=== PATIENT | female | born 2000 | race Caucasian/White ===

== ENCOUNTER 2021-03-30 17:31 | Emergency (ER) | payer OTHER, SELFPAY ==
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
[2021-03-30 17:40] VITALS: BP 119/74; PULSE 64; RESP 20; TEMP 36.3; O2SAT 100
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
== END 2021-03-30 18:13 | disposition home or self-care (01) ==
PROVIDERS: Emergency Provider Nurse Practitioner
DX: S69.91XA Unspecified injury of right wrist, hand and finger(s), initial encounter (principal); W22.8XXA Striking against or struck by other objects, initial encounter; E28.2 Polycystic ovarian syndrome; Z87.820 Personal history of traumatic brain injury
CPT/HCPCS: 73130; 99213; G0463

== ENCOUNTER 2021-10-01 17:53 | Emergency (ER) | payer OTHER, SELFPAY ==
--- NOTE | 2021-10-01 17:58 | ED.EAR ---
HPI - Ear Problem General Chief complaint: Ear Stated complaint: Lt Ear Pain Time Seen by Provider: 10/01/21 17:58 Source: patient, RN notes reviewed and old records reviewed Mode of arrival: ambulatory Limitations: no limitations History of Present Illness HPI Narrative: 21-year-old female presents to the [facility] with complaints of left ear pain since this morning. No treatment prior to arrival. Denies fevers. No headaches. No sore throat. No chest pain or abdominal pain. No nausea vomiting or diarrhea. MD Complaint: ear pain and ear discharge Location: left ear Related Data Allergies Allergy/AdvReac Type Severity Reaction Status Date / Time No Known Allergies Allergy Verified 10/01/21 17:55 Review of Systems Review of Systems: All systems reviewed & are unremarkable except as noted in HPI and below Constitutional: Constitutional: Reports no additional constitutional complaints, Denies chills and Denies fever(s) Eyes: Eyes: Reports no additional eye complaints, Denies change in vision and Denies photophobia ENT: Reports as per HPI Comments: There is no deformity of the finger. The patient is unable to extend or flex it well because of the pain. The PIP joint is not tender and extension is full and strong there. The DIP joint area is not particularly swollen but is tender. Cardiovascular: Cardiovascular: Reports no additional cardiovascular complaints and Denies chest pain Respiratory: Respiratory: Reports no additional respiratory complaints, Denies cough and Denies dyspnea Gastrointestinal: Gastrointestinal: Reports no additional gastrointestinal complaints, Denies abdominal pain, Denies nausea and Denies vomiting Musculoskeletal: Musculoskeletal: Reports no additional musculoskeletal complaints Integumentary/Breasts: Skin/Breast: Reports system reviewed and no additional complaints, except as docu Neurologic: Reports system reviewed and no additional complaints, except as documented Psychiatric: Psychiatric: Reports no additional psychiatric complaints Allergic/Immunologic: Allergic/Immunologic: Reports no additional allergic/immunologic complaints [facility] Past Medical History Medical History PCOS (polycystic ovarian syndrome) Traumatic brain injury Social History Social History Gender identity (if verbalized by the patient): Female Comments At the time of my signature, I reviewed and agree with the nursing past medical, surgical, social, and family history. There is no relevant family history pertinent to the patient complaint. Exam Const: General: healthy appearing, no acute distress and alert Nutritional Appearance: well nourished Orientation/consciousness: patient oriented x3 Limitations: no limitations HENMT: Head: normal to inspection Ears: external ears normal, EAC's normal and TM abnormal bulging on the left and erythematous on the left General nose exam: Normal external nose present Face and sinus: normal facial exam Mouth: Yes Normal oral and palatal mucosa present and Yes lip normal Throat: posterior oropharynx normal Eyes: Conjunctivae: conjunctivae normal Pupils: Equal, round and reactive pupils present Neck: Neck: normal visual inspection, no lymphadenopathy and no meningeal signs Chest: Chest palpation & inspection: normal inspection of the chest Resp: Effort & Inspection: normal respiratory effort Auscultation: clear to auscultation bilaterally Cardio: Rate: regular rate Rhythm: regular rhythm : General: Yes no CVA tenderness Back/Spine/Pelvis: Back: no CVA tenderness Skin: General skin exam: normal color Rashes: no rashes Neuro: General: patient oriented x3, moves all extremities, no meningeal signs and no focal motor deficits Speech: normal speech Gait exam (Neuro): Normal gait present Extrem: General: normal to inspection and no pedal edema Psych: Appea
[2021-10-01 18:05] VITALS: BP 114/51; PULSE 93; RESP 16; TEMP 37.2; O2SAT 100
== END 2021-10-01 18:15 | disposition home or self-care (01) ==
PROVIDERS: Emergency Provider Nurse Practitioner
DX: H66.002 Acute suppurative otitis media without spontaneous rupture of ear drum, left ear (principal); E28.2 Polycystic ovarian syndrome; Z87.820 Personal history of traumatic brain injury
CPT/HCPCS: 99213; G0463

== ENCOUNTER 2023-05-06 16:50 | Emergency (ER) | payer OTHER, SELFPAY ==
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
[2023-05-06 16:52] VITALS: BP 121/64; PULSE 80; RESP 18; TEMP 36.8; O2SAT 100
[2023-05-06 17:09] VITALS: O2SAT 100
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
[2023-05-06 17:30] VITALS: BP 109/61; PULSE 61; RESP 22
[2023-05-06] MEDS: SODIUM CHLORIDE 0.9% IV 1,000 ML 999 ML IV CONT (18:10)
[2023-05-06] MEDS: ACETAMINOPHEN 500 MG TABLET 1000 MG PO (18:11)
[2023-05-06] MEDS: diphenhydrAMINE HCl INJ 50 MG/ML VIAL 25 MG IV PUSH (18:11)
[2023-05-06] MEDS: METOCLOPRAMIDE HCL INJ 10 MG/2 ML VIAL IV PUSH (18:11)
== END 2023-05-06 19:12 | disposition left against medical advice (07) ==
PROVIDERS: Emergency Provider Physician Assistant
DX: S06.9X9A Unspecified intracranial injury with loss of consciousness of unspecified duration, initial encounter (principal); R93.0 Abnormal findings on diagnostic imaging of skull and head, not elsewhere classified; E28.2 Polycystic ovarian syndrome; Z87.820 Personal history of traumatic brain injury; W22.03XA Walked into furniture, initial encounter
CPT/HCPCS: 70450; 96361; 96374; 96375; 99284; A9270; J1200; J2765; J7030

== ENCOUNTER 2023-05-17 23:53 | Emergency (ER) | payer OTHER, SELFPAY ==
[2023-05-17 23:58] VITALS: PULSE 97; RESP 16; TEMP 36.3; O2SAT 99
[2023-05-18 00:17] VITALS: BP 128/84; PULSE 59; RESP 16; O2SAT 98
[2023-05-18 00:22] VITALS: BP 158/84; PULSE 58; RESP 16; O2SAT 98
--- NOTE | 2023-05-18 00:28 | PC.NURSE ---
pt has a broken tooth between the 1st and 2nd molar. pt sts that she eating popcorn and her tongue ring and tooth got tangled and she heard a crack. pt has an infected tooth and took Vicodin today in the am for pain.
--- NOTE | 2023-05-18 00:29 | ED.DENTAL ---
HPI - Dental/Oral General Chief complaint: Dental/Oral Stated complaint: toothache Time Seen by Provider: 05/18/23 00:15 Source: patient Mode of arrival: ambulatory Limitations: no limitations History of Present Illness HPI Narrative: Patient is a 23-year-old female who presents to the ED with report of dental pain. Patient reports she fractured one of her right lower teeth, tooth #29, in January. She was evaluated by her dentist at that time. She began having pain to this tooth around 2 days ago. Pain has progressively worsened since then. Patient has an appointment with her dentist on Monday, but was unable to find relief of the pain tonight. She did try taking Tylenol and a Vicodin at home. Denies any fevers, difficulty breathing or swallowing, drainage from her gums, sore throat. Related Data Allergies Allergy/AdvReac Type Severity Reaction Status Date / Time No Known Allergies Allergy Verified 05/17/23 23:54 Review of Systems Review of Systems: CONSTITUTIONAL: Denies fever, chills, or sweats. ENT: See HPI. CARDIOVASCULAR: Denies chest pain. RESPIRATORY: Denies dyspnea. GASTROINTESTINAL: Denies abdominal pain, nausea, vomiting. All systems reviewed & are unremarkable except as noted in HPI and below PMFSH Past Medical History Medical History PCOS (polycystic ovarian syndrome) Traumatic brain injury Social History Social History Gender identity (if verbalized by the patient): Female Exam Narrative: GENERAL: Well appearing, well-nourished, non-toxic, in no acute distress. HEAD: Normocephalic, atraumatic. ENT: Small corner avulsion chip to tooth #29 with tenderness along outer gumline. No significant erythema of gumline. No focal abscess or fluctuance. No drainage. No stridor. No trismus. NECK: Supple. No adenopathy, no masses. RESPIRATORY: Airway patent, respirations nonlabored. CARDIOVASCULAR: Regular rate and rhythm without murmurs, rubs, or gallops. Radial pulses 2+ and equal bilaterally. MUSCULOSKELETAL: Moves all extremities. Strength/ROM intact without gross deformities. SKIN: Warm, dry, normal color. No rashes. NEURO: A&O X3. Speech clear. Cranial nerves II-XII grossly intact. Steady gait. No ataxic movements. PSYCHIATRIC: Appropriate mood and affect. Normal interaction. Course Vital Signs Vital signs: Vital Signs Temperature 97.3 F L 05/17/23 23:58 Pulse Rate 97 05/17/23 23:58 Respiratory Rate 16 05/17/23 23:58 Pulse Oximetry 99 05/17/23 23:58 Oxygen Delivery Room Air 05/17/23 23:58 Temperature 97.3 F L 05/17/23 23:58 Pulse Rate 58 L 05/18/23 00:22 Respiratory Rate 16 05/18/23 00:22 Blood Pressure 158/84 H 05/18/23 00:22 Pulse Oximetry 98 05/18/23 00:22 Oxygen Delivery Room Air 05/17/23 23:58 MDM - Dental/Oral MDM Narrative Medical decision making narrative: Patient's pain is consistent with dental fracture/infection. There are no focal signs of space-occupying abscess. The patient is controlling secretions well without signs of airway compromise. Patient is felt reasonable for outpatient follow-up with dental evaluation. She has appt on Monday already scheduled. Will d/c with Augmentin to cover for infection and a few norco for pain control. Patient agrees w/ plan. Return precautions discussed. Medical Records Attestation: I reviewed the patient's medical records. Discharge Plan Discharge Clinical Impression: Toothache Fracture of tooth Qualifiers: Encounter type: subsequent encounter Fracture type: closed Fracture healing: with routine healing Qualified Code(s): S02.5XXD - Fracture of tooth (traumatic), subsequent encounter for fracture with routine healing Patient Disposition: Home, Self-Care Condition: Stable Instructions: Antibiotic Form, Dental Abscess (ED), Toothache (ED) Additional Instructions:
[2023-05-18] MEDS: KETOROLAC (*BKC) 60 MG/2 ML VIAL IM (00:36)
[2023-05-18] MEDS: AMOXICILLIN/CLAVULANATE K 875-125 MG TAB 1 TABLET PO (00:36)
== END 2023-05-18 00:51 | disposition home or self-care (01) ==
PROVIDERS: Emergency Provider Physician Assistant
DX: S02.5XXA Fracture of tooth (traumatic), initial encounter for closed fracture (principal); K08.89 Other specified disorders of teeth and supporting structures; X58.XXXA Exposure to other specified factors, initial encounter
CPT/HCPCS: 96372; 99283; A9270; J1885

== ENCOUNTER → 2023-12-21 10:04 | Outpatient (CLI) | payer OTHER, SELFPAY ==
--- NOTE | ~2023-12-21 | XR_ITS ---
Right ankle Technique: AP, oblique, and lateral views were obtained. Clinical History: Pain Findings: No acute fracture or dislocation is seen. Osseous alignment is anatomic. Ankle mortise and other visualized joint spaces are preserved. Soft tissues are otherwise unremarkable. Impression: Unremarkable right ankle. Reviewed, dictated and finalized at location . ICE CASE MANAGER Impression: Unremarkable right ankle.
--- NOTE | ~2023-12-21 | XR_ITS ---
Left Humerus Technique: AP and lateral views were obtained. Clinical History: Pain Findings: There is a healed fracture deformity the proximal humeral shaft with extensive compression plate and interlocking screws present. Small metallic foreign bodies are present near the fracture si te. Visualized joint spaces are grossly preserved. Soft tissues are unremarkable. Impression: No acute abnormality evident. Prior ORIF of the proximal humerus with healed fracture deformity present. Small metallic foreign bod ies near the fracture site. Reviewed, dictated and finalized at location M. ER MACHINE Impression: No acute abnormality evident. Prior ORIF of the proximal humerus with healed fracture deformity present. Smal l metallic foreign bodies near the fracture site.
--- NOTE | ~2023-12-21 | XR_ITS ---
Left Shoulder Technique: AP and axillary views were obtained. Clinical History: Pain Findings: No acute fracture or dislocation is seen. There is prior ORIF along the proximal half of th e humerus with extensive compression plate and multiple interlocking screws. There is an old, healed fracture deformity the proximal humeral shaft. Small metallic foreign bodies are present at the upper arm. The glenohumeral and acromioclavicular joint spaces are preserved. Soft tissues are unremarkabl e. Impression: No acute abnormality seen. Healed fracture deformity the proximal humeral shaft with extensive orthopedic hardware and several p atella foreign bodies. Reviewed, dictated and finalized at location . ET PRESS ASSISTANT Impression: No acute abnormality seen. Healed fracture deformity the proximal humeral shaft with extensive orthopedic hardware and several patella foreign bodies.
== END ==
PROVIDERS: PCP Family Medicine; Visit Provider Nurse Practitioner Family
DX: M25.512 Pain in left shoulder (principal); Z98.890 Other specified postprocedural states; M79.622 Pain in left upper arm; M25.571 Pain in right ankle and joints of right foot
CPT/HCPCS: 73030; 73060; 73600

== ENCOUNTER 2024-02-14 11:07 | Emergency (ER) | payer OTHER, SELFPAY ==
[2024-02-14 11:22] VITALS: BP 115/54; PULSE 72; RESP 16; TEMP 36.4; O2SAT 100
--- NOTE | 2024-02-14 11:36 | ED.DENTAL ---
HPI - Dental/Oral General Chief complaint: Dental/Oral Stated complaint: Tooth pain Time Seen by Provider: 02/14/24 11:36 Source: patient Mode of arrival: ambulatory Limitations: no limitations History of Present Illness HPI Narrative: 23-year-old female presents with complaint of dental pain and right facial swelling. Patient states that she had tooth pulled yesterday at [facility]. states tooth was infected at the time that it was pulled. Was not given in antibiotic. States pain and swelling worse today. All systems reviewed and negative except as noted above. Related Data Allergies Allergy/AdvReac Type Severity Reaction Status Date / Time buspirone [From BuSpar] Allergy Unknown Rash Verified 02/14/24 11:22 Review of Systems Review of Systems: CONSTITUTIONAL: Denies fever, chills, or sweats. EYES: Denies visual changes, redness, or discharge. ENT: Denies rhinorrhea, congestion, sore throat, or otalgia. Reports right lower dental pain with right facial swelling. CARDIOVASCULAR: Denies chest pain, palpitations, or edema. RESPIRATORY: Denies cough or dyspnea. GASTROINTESTINAL: Denies abdominal pain, nausea, vomiting, or diarrhea. GENITOURINARY: Denies dysuria or hematuria. SKIN: Denies rash or itching. MUSCULOSKELETAL: Denies back pain, joint pain, or myalgia. NEUROLOGIC: Denies headache, numbness, or weakness. PSYCHIATRIC: Denies anxiety or depression. All other systems reviewed are negative, except as documented in HPI. [facility] Past Medical History Medical History (Updated 02/14/24 @ 11:42 by Melisa Gaytan NP) Anxiety BMI 30.0-30.9,adult Depression Encounter to establish care Frequent headaches Left shoulder pain Left upper arm pain Nausea and vomiting PCOS (polycystic ovarian syndrome) Rash Right ankle pain Traumatic brain injury Surgical History Surgical History (Updated 12/20/23 @ 09:35 by Sruthi Martinez NP) History of open reduction and internal fixation (ORIF) procedure Left shoulder/humerus Social History Social History Smoking status: Current every day smoker Tobacco type: e-cigarettes/vaping Alcohol intake: never Substance use: current Substance use type: marijuana Current Housing: Decline to Answer Concerned About Future Housing: Decline to Answer Difficulty Paying Gas/Electric Bills: Decline to Answer Difficulty Paying for Meds: Decline to Answer Currently Unemployed: Decline to Answer Education: Decline to Answer Difficulty w/ Childcare or Family Care: Decline to Answer Gender identity (if verbalized by the patient): Female Comments At time of signature, agree with nursing past medical, surgical, social and family history. There is no relevant family history pertinent to the presenting complaint. Exam Narrative: GENERAL: This is a well-nourished, well-developed patient, in no apparent distress. HEAD: normocephalic, atraumatic. EYES: PERRL. Sclera clear/white. Vision is grossly intact. EARS: External ears normal NOSE: External nose normal MOUTH: tooth #[address]. no active bleeding. surrouding erythema and swelling with odor. NECK: Neck supple, non-tender without lymphadenopathy, masses or thyromegaly. CARDIOVASCULAR: Regular rate and rhythm without murmurs, gallops, or rubs. RESPIRATORY: Clear to auscultation. Breath sounds equal bilaterally. No wheezes, rales, or rhonchi. SKIN: warm, Dry, intact with no suspicious lesions or rash, good texture and turgor. NEURO: awake, alert, and oriented to person, place and time. There were no obvious focal neurologic abnormalities. EXTREMITIES: No joint tenderness, effusion, or edema noted. Course Course Level of Care: Express Care Visit Vital Signs Vital signs: Vital Signs Temperature 36.4 C L 02/14/24 11:22 Pulse Rate 72 02/14/24 11:22 Respiratory Rate 16 02/14/24 11:22 Blood P
== END 2024-02-14 11:45 | disposition home or self-care (01) ==
PROVIDERS: Emergency Provider Nurse Practitioner Family; PCP Nurse Practitioner Family
DX: K04.7 Periapical abscess without sinus (principal); F17.290 Nicotine dependence, other tobacco product, uncomplicated; F12.90 Cannabis use, unspecified, uncomplicated; E28.2 Polycystic ovarian syndrome; F41.9 Anxiety disorder, unspecified; F32.A Depression, unspecified
CPT/HCPCS: 99213; G0463

== ENCOUNTER 2024-02-16 15:58 | Emergency (ER) | payer OTHER, SELFPAY ==
--- NOTE | ~2024-02-16 | XR_ITS ---
EXAMINATION: XR hand RT min 3V DATE: 02/16/2024 16:18 INDICATION: Right hand injury and pain. TECHNIQUE: 3 views of right hand were obtained. COMPARISON: Right hand radiograph 03/30/2021 FINDINGS: Bone alignment is normal. No fracture. There is a benign bone island in lunate. Joint space s are normal. IMPRESSION: 1. No fracture. Reviewed, dictated and finalized at location E. IMPRESSION: 1. No fracture.
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
[2024-02-16 16:07] VITALS: BP 127/62; PULSE 76; RESP 16; TEMP 36.6; O2SAT 100
== END 2024-02-16 16:35 | disposition home or self-care (01) ==
PROVIDERS: Emergency Provider Nurse Practitioner Family; PCP Nurse Practitioner Family
DX: S63.91XA Sprain of unspecified part of right wrist and hand, initial encounter (principal); S66.911A Strain of unspecified muscle, fascia and tendon at wrist and hand level, right hand, initial encounter; W22.8XXA Striking against or struck by other objects, initial encounter; E28.2 Polycystic ovarian syndrome
CPT/HCPCS: 73130; 99213; G0463

== ENCOUNTER 2024-05-30 08:41 | Emergency (ER) | payer OTHER, SELFPAY ==
[2024-05-30 09:11] VITALS: BP 120/64; PULSE 70; RESP 18; TEMP 36.4; O2SAT 100
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
[2024-05-30 10:04] LABS: EDSTREPNEGPOS1 Presumptive Negative
== END 2024-05-30 10:11 | disposition home or self-care (01) ==
PROVIDERS: Emergency Provider Nurse Practitioner; PCP Nurse Practitioner Family
DX: R09.82 Postnasal drip (principal); J02.9 Acute pharyngitis, unspecified; F17.290 Nicotine dependence, other tobacco product, uncomplicated; F12.90 Cannabis use, unspecified, uncomplicated; E28.2 Polycystic ovarian syndrome
CPT/HCPCS: 87081; 87880; 99213; G0463

== ENCOUNTER 2025-01-10 17:30 | Emergency (ER) | payer OTHER, SELFPAY ==
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
--- OUTSIDE RECORDS SUMMARY | 2025-01-10 17:32 | XMS_ITS | Clinical Summary ---
Author Organization [facility] Address [address] [place] [address] Care Team Providers Care [facility] Name Role Phone StacieFrancesca harrell PÉREZ Primary Care Provider [phone] Allergies Active Allergy Reactions Criticality Noted Date Comments Amoxicillin Unknown 04/03/2023 Medications traMADol (ULTRAM) 50 MG tabletIndication s:Acute Pain < 7 Day Supply Indications : Acute Pain < 7 Day Supply 1-2 every 6 hours as needed for pain 20 tablet 04/03/2023 Active Social History Tobacco Use Types Packs/Day Years Used Date Smoking Tobacco: Never Smokeless Tobacco: Never Tobacco Cessation:Counseling Given: Not Answered Comments No Sex and Gender Information Value Date Recorded Sex Assigned at Not on file Legal Sex Female 4:50 PM CDT Gender Identity Not on file Sexual Orientation Not on file Last Filed Vital Signs Vital Sign Reading Time Taken Comments Blood Pressure 126/74 04/03/2023 5:22 PM CDT Pulse 73 04/03/2023 5:22 PM CDT Temperature 36.9 C (98.4 F) 04/03/2023 5:22 PM CDT Respiratory Rate 18 04/03/2023 5:22 PM CDT Oxygen Saturation 100% 04/03/2023 5:22 PM CDT Inhaled Oxygen Concentration - - Weight 70.2 kg (154 lb 12.8 oz) 04/03/2023 5:22 PM CDT Height 157.5 cm (5' 2 ) 04/03/2023 5:22 PM CDT Body Mass Index 28.31 04/03/2023 5:22 PM CDT Plan of Treatment Health Maintenance Due Date Last Done Comments Cervical Cancer Screening Pa p Smear (Age 21 to 29) Every 3 Years 1998 Cervical Cancer Screening 1998 Annual Physical 2001 HPV Vaccines (1 - 3-dose series) 2013 Hepatitis C 2016 Hepatitis B Vaccines (1 of 3 - 19+ 3-dose series) 2017 COVID-19 Vaccine (3 - 2023-2 5 season) 2024 03/23/2021, 03/02/2021 Influenza Adult (#1) 2024 DTaP, Tdap and Td Vaccines ( 2 - Td or Tdap) 03/04/2032 03/04/2022 Meningococcal B Vaccine Aged Out No l onger eligible based on patient's age to complete this topic Meningococcal Vaccine Aged Out No arianna barbi eligible based on patient's age to complete this topic Pneumococcal Vaccine: Pediatrics (0 to 5 Years) and At-Risk Patients (6 to 64 Years) Aged Out No longer eligible b ased on patient's age to complete this topic RSV Immunizations Under 20 Months Aged Out No longer eligible b ased on patient's age to complete this topic Insurance [employer] Care Teams [facility] Relationship Specialty Start Date End Date Francesca Ricardo NP [address] [place] [id number] PCP - General NURSE PRACTITIONER 04/03/23
--- OUTSIDE RECORDS SUMMARY | 2025-01-10 17:32 | XMS_ITS | Encounter Summary ---
Author Organization [facility] Address [address] [place] [address] Care Team Providers Care Mechanical Meter Tester Name Role Phone Vicki Gomez MD Primary Care Provider [phone] Vicki Gomez MD Unavailable Vicki Gomez MD Unavailable Reason for Visit * Reason Onset Date Comments MEDICATION REFILL 05/02/2023 Encounter Details Date Type Department Care Team (Late st Contact Info) Description 05/02/2023 Refill [facility] ICU [address] [place] [address] Bry Bello MD [facility] [place], [place] MEDICATION REFILL Social History Tobacco Use Types Packs/Day Years Used Date Smoking Tobacco: Unknown Smokeless Tobacco: Never Alcohol Use Standard Drinks/Week Comments Not Asked 0 (1 standard drink = 0.6 oz pure alcohol) unable to assess due to condition AUDIT-C Answer Date Recorded Q1: How often do you have a drink containing alc ohol? Monthly or less 03/05/2022 Q2: How many drinks containi ng alcohol do you have on a typical day when you are drinking? 1 or 2 03/05/2022 Q3: How often do you have si x or more drinks on one occasion? Never 03/05/2022 Sex and Gender Information Value Date Recorded Sex Assigned at Not on file Gender Identity Not on file Sexual Orientation Not on file documented as of this encounter Functional Status Functional Status Response Date of Assess ment Is person deaf or have serious hearing difficult y? No 03/05/2022 Is person blind or have serious difficulty seein g? No 03/05/2022 Does person have serious dif ficulty walking/climbing stairs? No 03/05/2022 Does person have difficulty dressing/bathing? No 03/05/2022 Does person have difficulty doing errands alone? No 03/05/2022 Cognitive Status Response Date of Assessm ent Does person have difficulty concentrating/remembering/making decisions? No 03/05/2022 documented as of this encounter Plan of Treatment Not on file documented as of this encounter Visit Diagnoses Not on filedocumented in this encounter Care Teams Mechanical Meter Tester Relationship Specialty Start Date End Date Vicki Gomez MD [address] [place] [address] PCP - General 03/09/22 Vicki Gomez MD [address] [facility] [place] [address] Pediatrics 03/09/22 Vicki Gomez MD [address] [facility] [address] [address] [place] [address] 03/04/22 documented as of this encounter
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
--- OUTSIDE RECORDS SUMMARY | 2025-01-10 17:32 | XMS_ITS | Data Portability ---
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 treatment. We discussed the risk associated with PCOS and long-term health outcomes. To check labs. To initiate treatment. We agreed to start metformin, spironolac tone, and combined oral contracept thi pills. We discussed these medication , it is mechanism of action. Talked about risks, benefits, and alternativ es of medication x3. Talked about instructio ns and precaution s for each medication . I spent over 30 minutes on this patient's care. We also talked about diminished libido. She is taking sertraline . talked about alternate medication s . lobito about medication s that could be added. Her primary care takes care of this medication . She is going to request a medication switch from a primary care doctor. Let her primary care doctor know about this issue. Reduced libido [id number] R 68.82 [id number] Мария Roe [facility] [address],[place] [address] 10/18/2024 13:54:56 10/18/2024 14:58:04 Contraception care management [id number] Z30.9 IUD inserted without complicati ons. She tolerated it well. Insertion of intrauterine contraceptive device [id number] Z30.430 [id number] Tanner Sanchez MD [facility] [address],[place] [address] 11/18/2024 11:35:06 11/18/2024 12:52:29 Contraception care management [id number] Z30.9 This patient is a 24-year-ol d who presents for IUD check. She has no complaints . She was examined with a speculum. The cervix appears normal, the IUD string WAS NOT VISIBLE.. She will follow up WE ULTRASOUND . IF IT IS PLACED CORRECTLY, THE PATIENT IS COMFORTABL E JUST LEAVING THE IUD IN PLACE UNTIL WE NEED TO REMOVE IT. [id number] Gavi Yip [facility] [address] [address] 11/19/2024 12:21:03 11/19/2024 13:52:55 Mechanical complication of intrauterine contraceptive device [id number] T83.39XA Health Concerns Section Related Observation LastModified by Organization Detai ls LastModified Time None Recorded Concern Status LastModified by Organization Details LastModified Time None Recorded Advance Directives Directive None Recorded Payers Encounter Date Sequence Insurance Name Policy Number Policy [place] Covered Member ID Austin Member ID Guarantor Name 03/12/2024 1 [facility] (MEDICAID HM) [id number] Yas Alfonso [id number] Yas Alfonso 09/02/2024 1 [facility] (MEDICAID HMO) [id number] Yas Alfonso [id number] Yas Alfonso 10/18/2024 1 [facility] (MEDICAID HMO) [id number] Yas Alfonso [id number] Yas Alfonso 11/18/2024 1 [facility] (MEDICAID HMO) [id number] 0003 Yas Alfonso [id number] Yas Alfonso 11/19/2024 1 [facility] (MEDICAID HMO) [id number] Yas Alfonso [id number] Yas Alfonso Notes Date Note Type Note Provider Name and Address Organization Details Recorded Time 03/12/2024 text/html Here today for medication check of Addyi. Myah Swan, [facility]- [address], [place], [address], [facility] 03/12/2024 15:55:17 09/02/2024 text/html 24-year-old fema le with PCOS. We discussed abnormal uterine bleeding and amenorrhea. We discussed polycystic ovarian syndrome. We discussed the diagnosis. We discussed the underlying disease process. We discussed laboratory evaluation. We discussed her ultrasound and laboratory results. We discussed the prevention of endometrial cancer. We discussed protecting the endometrium and how that is carried out. We discussed treatment in the context of a desired . We discussed medical treatment. We discussed the risk associated with PCOS and long-term health outcomes. To check labs. To initiate treatment. We agreed to start metformin, spironolactone, and combined oral contraceptive pills. We discussed these medication, it is mechanism of action. Talked about risks, benefits, and alternatives of medication x3. Talked about instructions and precautions for each medication. I spent over 30 minutes on this patient's care. We also talked about diminished libido. She is taking sertraline. talked about alternate medications . lobito about medications that could be added. Her primary care takes care of this medication. She is going to request a medication switch from a primary care doctor. Let her primary care doctor know about this issue. Tanner Sanchez MD [address], [place], [address], [facility] 09/02/2024 12:19:52 10/18/2024 text/html Patient presents for IUD insertion. The procedure was explained to the patient in detail. She understands the procedure. She understands the risks, benefits, and alternatives. She has completed the informed consent process and is ready to proceed. Мария francisco, [facility] 10/18/2024 17:14:11 11/18/2024 text/html This patient is a 24-year-old who presents for IUD check. She has no complaints. She was examined with a speculum. The cervix appears normal, the IUD string WAS NOT VISIBLE.. She will follow up WE ULTRASOUND. IF IT IS PLACED CORRECTLY, THE PATIENT IS COMFORTABLE JUST LEAVING THE IUD IN PLACE UNTIL WE NEED TO REMOVE IT. Tanner Sanchez MD [address], [place], [address], [facility] 11/18/2024 12:51:29 OBGyn Episode No OBEpisode recorded.
--- NOTE | 2025-01-10 17:34 | ED.NAVMDI ---
HPI - Nausea/Vomiting/Diarrhea General Chief complaint: Nausea/Vomiting/Diarrhea Stated complaint: N/V/D Time Seen by Provider: 01/10/25 17:32 Source: patient Mode of arrival: ambulatory Limitations: no limitations History of Present Illness HPI Narrative: Yas is a 24-year-old female patient presenting to the clinic today with complaints headache, sore throat, nausea, vomiting, diarrhea, and abdominal cramping. She has vomited about 10 times since 10:00 last night and she has had about 15 diarrhea stools. Has taken [id number] DayQuil, Zofran, and diarrhea medicine without relief. She denies any blood in her stool. Related Data Allergies Allergy/AdvReac Type Severity Reaction Status Date / Time bupropion (From Wellbutrin) Allergy Intermediate Hives Verified 01/10/25 17:53 Penicillins Allergy Intermediate Hives Verified 01/10/25 17:53 buspirone (From BuSpar) Allergy Mild Rash Verified 01/10/25 17:53 Review of Systems Review of Systems: Pertinent positives per HPI. Patient denies any fever, chills, rash, visual changes, dizziness, cough, runny nose, shortness of breath, chest pain, palpitations, constipation, or any urinary issues. [facility] Past Medical History Medical History Vaping nicotine dependence, non-tobacco product BMI 32.0-32.9,adult BMI 33.0-33.9,adult Nausea and vomiting Rash Left shoulder pain Left upper arm pain Right ankle pain Frequent headaches BMI 30.0-30.9,adult Anxiety Depression Encounter to establish care PCOS (polycystic ovarian syndrome) Traumatic brain injury Surgical History Surgical History History of open reduction and internal fixation (ORIF) procedure Left shoulder/humerus Social History Social History Smoking status: Current every day smoker Tobacco type: e-cigarettes/vaping Alcohol intake: never Substance use: current Substance use type: marijuana Current Housing: Decline to Answer Concerned About Future Housing: Decline to Answer Difficulty Paying Gas/Electric Bills: Decline to Answer Difficulty Paying for Meds: Decline to Answer Currently Unemployed: Decline to Answer Education: Decline to Answer Difficulty w/ Childcare or Family Care: Decline to Answer Gender identity (if verbalized by the patient): Female Comments At the time of my signature, I reviewed and agree with the nursing past medical, surgical, social, and family history. There is no relevant family history pertinent to the patient complaint. Exam Narrative: General: Well-developed, well nourished, in no apparent distress Head: Normocephalic, atraumatic Eyes: Pupils equally round and reactive to light bilaterally, EOM intact, sclera and conjunctive clear, no discharge, lids normal Ears: TMs intact and clear, ear canals clear, no drainage, grossly hearing normal. Nose: Nares patent, clear discharge, no inflammation, no sinus tenderness. Mouth: Oropharynx red without lesions or masses, good dentition, MM dry. Neck: Supple, trachea midline, no enlargement of anterior or posterior cervical nodes, no thyroid masses or goiter palpable. Cardio: Regular rate and rhythm, s1 and s2 normal, no murmur appreciated. Resp: Clear to auscultation bilaterally anteriorly and posteriorly, no rhonchi, rales, wheezing or rubs Abdomen: Soft, pliable, bowel sounds present in all quadrants, non-tender to palpation, no organomegly, no CVAT tenderness. Course Course Emergency Course: Portions of this record may have been created with voice recognition software. Level of Care: Express Care Visit Vital Signs Vital signs: Vital Signs Temperature 36.7 C 01/10/25 17:42 Pulse Rate 74 01/10/25 17:42 Respiratory Rate 20 01/10/25 17:42 Blood Pressure 111/55 L 01/10/25 17:42 Pulse Oximetry 100 01/10/25 17:42 Oxygen Delivery Room Air 01/10/25 17:42 Temperature 36.7 C 01/10/25 17:42 Pulse Rate 74 01/10/25 17:42 Respiratory Rate 20 01/10/25 17:42 Blood Pressure 111/55 L 01/10/25 17:42 Pulse Oximetry 100 01/10/25 17:42 Oxygen Delivery Room Air 01/10/25 17:42 Vital signs reviewed MDM - Nausea/Vomiting/Diarrhea MDM Narrative Medical decision making narrative: At the time of visit patient is resting comfortably on the exam table. Patient appears to be acutely ill and mildly dehydrated Labs: Strep, COVID, and influenza testing were all negative in the clinic today. We will send strep for culture. Plan: I suspect patient has viral syndrome/gastroenteritis/mild dehydration. Prescription for promethazine and Levsin was sent to the pharmacy. Supportive measures were discussed with the patient and they voiced understanding discharge instructions and agrees to treatment plan. Return precautions reviewed Differential Diagnosis Differential diagnosis: Likely traveler's diarrhea, food poisoning, gastroenteritis, clostridium difficile infection, drug-induced nausea and vomiting, dehydration and other (COVID, influenza, strep, viral syndrome) Lab Data Labs: Lab Results 01/10/25 01/10/25 Range/Units 18:07 18:18 POC Influenza A Ag Negative (Negative) POC Influenza B Ag Negative (Negative) POC SARS CoV-2 Ag Negative (Negative) POC Grp A Strep Screen Negative (Negative) Discharge Plan Discharge Clinical Impression: Gastroenteritis, Acute viral syndrome, Mild dehydration Patient Disposition: Home, Self-Care Condition: Stable Instructions: Antibiotic Form, Dehydration (ED), Gastroenteritis (ED), Viral Syndrome (ED) Additional Instructions: COVID, influenza, and strep test were all negative in the clinic today. We will send strep for culture. Take prescription medications only as prescribed-Levsin for abdominal cramping and promethazine for nausea/vomiting May take Imodium as needed for diarrhea as long as there is no blood in your stool. Increase fluids and stay well hydrated Tylenol/motrin for pain/fever Flonase and OTC antihistamines as directed Vicks vapor rub to open sinuses Sinus rinses for congestion Cepacol spray, cough drops, throat lozenges, warm tea with honey/lemon, gargle salt water to soothe throat BRAT diet for diarrhea Clear liquids x 24 hours then advance as tolerated for nausea/vomiting Go to the ED if you develop a worsening in your condition- high fever not controlled by Tylenol or Motrin, dehydration, weakness, lethargy, shortness of breath, or chest pain. Follow up with your PCP in 3-5 days if symptoms persist. Patient Language: Citizen Of [place] Prescriptions: New hyoscyamine sulfate [Levsin] 0.125 mg tablet 0.125 mg PO QID PRN (Reason: dyspepsia) 3 Days Qty: 12 0RF promethazine 25 mg tablet 25 mg PO TID PRN (Reason: nausea and vomiting) Qty: 10 0RF No Action sertraline 50 mg tablet 50 mg PO DAILY Qty: 30 5RF sertraline 25 mg tablet 25 mg PO DAILY Qty: 30 5RF Rx Instructions: take with sertraline 50mg tab to equal 75mg daily Follow-up/Referrals: UNKNOWN,DOCTOR [Primary Care Provider] - Stand Alone Forms: Work/School Release IP Time of Disposition: 18:25 Quality NIHSS Nursing Documentation ED NIHSS nursing documentation: reviewed/agree
[2025-01-10 17:42] VITALS: BP 111/55; PULSE 74; RESP 20; TEMP 36.7; O2SAT 100
[2025-01-10 18:09] LABS: EDSTREPNEGPOS1 Negative (Negative)
[2025-01-10 18:20] LABS: EDCOVIDSCREEN Negative (Negative); EDINFLUASCREEN Negative (Negative); EDINFLUBSCREEN Negative (Negative)
== END 2025-01-10 18:28 | disposition home or self-care (01) ==
PROVIDERS: Emergency Provider Nurse Practitioner Family
DX: K52.9 Noninfective gastroenteritis and colitis, unspecified (principal); B34.9 Viral infection, unspecified; E86.0 Dehydration; Z20.822 Contact with and (suspected) exposure to COVID-19; F17.290 Nicotine dependence, other tobacco product, uncomplicated; F12.90 Cannabis use, unspecified, uncomplicated; E28.2 Polycystic ovarian syndrome; F41.9 Anxiety disorder, unspecified; F32.A Depression, unspecified
CPT/HCPCS: 87081; 87426; 87804; 87880; 99213; G0463

== ENCOUNTER 2025-04-13 16:22 | Emergency (ER) | payer OTHER, SELFPAY ==
--- NOTE | ~2025-04-13 | XR_ITS ---
EXAMINATION: XR chest 2V Exam Date/Time: 04/13/2025 16:44 CDT HISTORY: cough for 1 month,vapes Comparison: None. RESULT: Lines, tubes, and devices: Partially visualized right proximal humeral hardware. Lungs and pleura: Clear. Cardiomediastinal silhouette: Normal. Other: No acute osseous or upper abdominal finding. IMPRESSION: No acute cardiopulmonary process. Reviewed, dictated and finalized at location K.
[2025-04-13 16:37] VITALS: BP 105/56; PULSE 88; RESP 16; TEMP 36.2; O2SAT 100
--- NOTE | 2025-04-13 17:14 | ED.URI ---
HPI - URI/Sore Throat General Chief Complaint: Upper Respiratory Infection Stated Complaint: Cough Time Seen by Provider: 04/13/25 16:25 Source: patient Mode of arrival: ambulatory Limitations: no limitations History of Present Illness HPI Narrative: Patient is a 24-year-old female who presents to the clinic with complaints of cough that is keeping her awake at night x 6 weeks. She states that at times it can be productive, but mainly is nonproductive. Patient states she had a fever a week ago, but that has resolved. She has not been taking anything over the counter. Currently, she has no pain today. She endorses that she vapes everyday. Denies any shortness of breath, body aches, chills, nausea, vomiting or diarrhea. Related Data Home Medications ?Medication ?Instructions ?Recorded ?Confirmed ?Last Taken ?Type sertraline 100 mg tablet mg 01/10/25 Unknown History Allergies Allergy/AdvReac Type Severity Reaction Status Date / Time bupropion (From Wellbutrin) Allergy Intermediate Hives Verified 04/13/25 16:27 Penicillins Allergy Intermediate Hives Verified 04/13/25 16:27 buspirone (From BuSpar) Allergy Mild Rash Verified 04/13/25 16:27 Review of Systems Review of Systems: CONSTITUTIONAL: Denies body aches, fever, chills, or sweats. EYES: Denies visual changes, redness, or discharge. ENT: Denies rhinorrhea, congestion, sore throat, or otalgia. CARDIOVASCULAR: Denies chest pain, palpitations, or edema. RESPIRATORY: Reports cough. Denies dyspnea. GASTROINTESTINAL: Denies abdominal pain, nausea, vomiting, or diarrhea. GENITOURINARY: Denies dysuria or hematuria. SKIN: Denies rash, itching, or wounds. MUSCULOSKELETAL: Denies back pain, joint pain, or myalgia. NEUROLOGIC: Denies headache, numbness, tingling, or weakness. PSYCH: Denies depression or anxiety. All systems reviewed & are unremarkable except as noted in HPI and below PMFSH Past Medical History Medical History Vaping nicotine dependence, non-tobacco product BMI 32.0-32.9,adult BMI 33.0-33.9,adult Nausea and vomiting Rash Left shoulder pain Left upper arm pain Right ankle pain Frequent headaches BMI 30.0-30.9,adult Anxiety Depression Encounter to establish care PCOS (polycystic ovarian syndrome) Traumatic brain injury Surgical History Surgical History History of open reduction and internal fixation (ORIF) procedure Left shoulder/humerus Social History Social History Smoking status: Current every day smoker Tobacco type: e-cigarettes/vaping Alcohol intake: never Substance use: current Substance use type: marijuana Current Housing: Decline to Answer Concerned About Future Housing: Decline to Answer Difficulty Paying Gas/Electric Bills: Decline to Answer Difficulty Paying for Meds: Decline to Answer Currently Unemployed: Decline to Answer Education: Decline to Answer Difficulty w/ Childcare or Family Care: Decline to Answer Gender identity (if verbalized by the patient): Female Comments At time of signature, I have reviewed and agree with nursing past medical, surgical, social and family history unless otherwise noted. Please see nursing chart for further information. There is no relevant family history pertinent to the presenting complaint. Exam Narrative: GENERAL: Well-appearing, well-nourished, and in no acute distress. EYES: EOMI. No redness or drainage. Conjunctivae normal. ENT: Mucous membranes pink and moist. Nares clear. TMs normal bilaterally. No Throat Erythema or tonsillar exudate, uvula midline. NECK: Normal AROM. Supple. No lymphadenopathy. CHEST: No respiratory distress. Clear to auscultation. HEART: Regular rate and rhythm. No murmur appreciated. Normal peripheral pulses. ABDOMEN: Soft, nontender, nondistended, normal active bowel sounds. SKIN: Warm, dry, no rash. Capillary refill normal. Normal skin turgor. NEURO: No focal deficits. Alert and oriented x3. Gait steady. PSYCH: Normal affect. No signs of depression or anxiety. Course Course Level of Care: Express Care Visit Vital Signs Vital signs: Vital Signs Temperature 97.2 F L 04/13/25 16:37 Pulse Rate 88 04/13/25 16:37 Respiratory Rate 16 04/13/25 16:37 Blood Pressure 105/56 L 04/13/25 16:37 Pulse Oximetry 100 04/13/25 16:37 Oxygen Delivery Room Air 04/13/25 16:37 Temperature 97.2 F L 04/13/25 16:37 Pulse Rate 88 04/13/25 16:37 Respiratory Rate 16 04/13/25 16:37 Blood Pressure 105/56 L 04/13/25 16:37 Pulse Oximetry 100 04/13/25 16:37 Oxygen Delivery Room Air 04/13/25 16:37 Reviewed. MDM - URI/Sore Throat MDM Narrative Medical decision making narrative: Discussed physical exam findings. Physical exam negative. Steroids and benzonatate prescriptions given. Advised supportive measures and signs/symptoms to go to the ER. Pt is appropriate for outpatient treatment and follow up. Differential Diagnosis Differential diagnosis: Likely viral infection, bronchitis and other (cough, allergies, pneumonia, ) Imaging Data Radiologist's impression: ITS Impressions Chest X-Ray 04/13/25 16:58 IMPRESSION: No acute cardiopulmonary process. Critical Care Time Critical Care Time Critical Care Time: No Discharge Plan Discharge Clinical Impression: Cough Qualifiers: Cough type: acute Qualified Code(s): R05.1 - Acute cough Patient Disposition: Home Condition: Stable Instructions: Acute Cough (ED) Additional Instructions: Use benzonatate as prescribed. Take steroid as prescribed. Recommend Flonase spray and Zyrtec (or Claritin/Marissa) Tylenol every 8 hours as needed for pain. Symptomatic treatment includes: rest, fluids, and increase humidity of the air at home. Follow up with your primary care provider in 1 week. Go to the ER for worsening symptoms or concerns. Patient Language: Tristanian Prescriptions: New benzonatate 200 mg capsule 200 mg PO BID PRN (Reason: cough) Qty: 20 0RF prednisone 20 mg tablet 40 mg PO DAILY 5 Days Qty: 10 0RF No Action sertraline 100 mg tablet Follow-up/Referrals: Sruthi Martinez NP [Primary Care Provider] - Time of Disposition: 17:12
== END 2025-04-13 17:26 | disposition home or self-care (01) ==
PROVIDERS: PCP Nurse Practitioner Family
DX: R05.1 Acute cough (principal); F17.290 Nicotine dependence, other tobacco product, uncomplicated; F12.90 Cannabis use, unspecified, uncomplicated; E28.2 Polycystic ovarian syndrome; Z87.820 Personal history of traumatic brain injury
CPT/HCPCS: 71046; 99213; G0463